=== PATIENT | female | born 1950 | race Caucasian/White ===

== ENCOUNTER 2018-01-06 07:40 | Day surgery (SDC) | payer MEDICARE, OTHER ==
[2018-01-06] MEDS ORDERED: ACETAZOLAMIDE 250 MG PO ONE (07:58)
[2018-01-06] MEDS: PHENYLEPHRINE HCL 10% OPHTHAL SOL ONE ×2 (08:04→08:17)
[2018-01-06] MEDS: PROPARACAINE HCL 0.5% OPHTHALMIC SOL ONE ×3 (08:04→09:00)
[2018-01-06] MEDS: KETOROLAC 0.5% OPTH 60 DROP SOL ONE ×2 (08:05→08:18)
[2018-01-06] MEDS: CYCLOPENTOLATE 1% SOL ONE ×2 (08:05→08:17)
[2018-01-06 08:13] VITALS: RESP 16
[2018-01-06] MEDS ORDERED: MIDAZOLAM 2 MG/2 ML SOL ONE (08:42)
[2018-01-06] MEDS ORDERED: FENTANYL 100MCG/2ML SOL ONE (08:42)
[2018-01-06] MEDS ORDERED: BSS 500 ML 500 ML IR ONE (08:55)
[2018-01-06] MEDS ORDERED: CEFUROXIME SODIUM/0.9% NACL/PF 10 MG/ML VIAL IO ONE (08:55)
[2018-01-06] MEDS ORDERED: TRIAMCINOLONE ACETONIDE 10 MG/ML VIAL ONE (08:55)
[2018-01-06] MEDS ORDERED: LIDOCAINE HCL 1% MPF SOL ONE (08:55)
[2018-01-06] MEDS ORDERED: POVIDONE IODINE 5% SOL ONE (08:55)
[2018-01-06 09:29] VITALS: BP 141/76; PULSE 66; TEMP 97.7; O2SAT 95
== END 2018-01-06 10:05 | disposition home or self-care (01) | DRG 125 ==
LOC: EDBD → SURG 07:40
PROVIDERS: ATTEND Ophthalmology
DX: H25.9 Unspecified age-related cataract (principal); E11.9 Type 2 diabetes mellitus without complications; H40.10X2 Unspecified open-angle glaucoma, moderate stage
CPT/HCPCS: 0191T; 66984; 82962; J2250; J3010; A9270-GY; C1783; J0697; J2001; J3300